=== PATIENT | female | born 1975 | race Caucasian/White ===

== ENCOUNTER 2017-02-10 10:54 | Emergency (ER) ==
--- NOTE | 2017-02-10 11:11 | ED EKG INTERP ---
EKG Interpretation - EKG Time of EKG reading by physician:: 11:09 EKG Read and Signed by:: Elvin Doll EKG Interpretation (*Must complete 3 of following elements*): Normal Rate: 75 Rhythm: nsr [place]: normal QRS: normal RI Interval: normal ST Wave: normal
[2017-02-10] MEDS ORDERED: NAPROSYN PO ONE (11:22)
--- NOTE | 2017-02-10 11:22 | EKG Report ---
Test Performed on : 02/10/2017 11:09:00 AM Test Reason : CP Blood Pressure : / mmHG Vent. Rate : 075 BPM Atrial Rate : 075 BPM P-R Int : 118 ms QRS Dur : 080 ms QT Int : 418 ms P-R-T Axes : 049 083 059 degrees QTc Int : 466 ms Normal sinus rhythm. Normal ECG No previous ECGs available Unconfirmed Result
[2017-02-10] MEDS ORDERED: ROBAXIN PO ONE (11:23)
--- NOTE | 2017-02-10 11:27 | PROVIDER DOCUMENTATION ---
HPI-General Adult - General Source: patient - History of Present Illness -Gen Adult Nature of Presenting Problems: 41 y/o F presents to ED cc of multiple pains. Pt states she works nights and uses her arms alot. Pt states while at work she got a pain in her L shoulder the radiates down her arm x 1 day. Reports pain being sharp/aching. Pt also reports "a pain in my heart" x 1 year and has been seen many times for with no answers. Pt states also having a pain around her R collar bone that is sharp that onset last PM. Pt denies any injury. Location of Pain/Injury: reports: chest ("in my heart"), upper extremity (L shoulder) Pain Radiation: reports: arm(s) (L arm) Quality of Pain: reports: aching, sharp Severity: reports: mild Onset/Duration: reports: just prior to arrival Timing: reports: still present Context/Activities at Onset: reports: light activity Modifying Factors: improves with: movement Associated Symptoms: reports: back/neck pain (R coller bone pain), chest pain ( " pain in heart"), other (shoulder pain). denies: cough, shortness of breath Similar Symptoms Previously?: No Recently seen or treated by another doctor?: No <Diana Vanegas - Last Filed: 02/10/17 12:32> - General Source: patient - History of Present Illness -Gen Adult Location of Pain/Injury: reports: upper extremity Pain Radiation: reports: no radiation Quality of Pain: reports: aching Severity: reports: mild Onset/Duration: reports: 4-6 hours ago Timing: reports: still present Context/Activities at Onset: reports: light activity Modifying Factors: improves with: nothing Associated Symptoms: reports: other (REPORTS ANTERIOR CHEST WALL PAIN WITH COUGH --NO SOB.) Similar Symptoms Previously?: No Recently seen or treated by another doctor?: No <Cindy Morrell - Last Filed: 02/10/17 14:07> - General Chief Complaint: Chest Pain Stated Complaint: LOW BLOOD SUGAR/ARM PAIN Time Seen by Provider: 02/10/17 11:19 Allergies/Adverse Reactions: Patient Allergies Allergy/AdvReac Type Severity Reaction Status Date / Time No Known Allergies Allergy Verified 02/10/17 13:13 Home Medications: Home Medication List Medication Instructions Recorded Confirmed Last Taken Type Bisacodyl [Dulcolax] 10 mg [place] QHS #20 supp 11/30/16 02/10/17 Unknown Rx Cyclobenzaprine [Flexeril] 10 mg PO TID #20 tablet 11/30/16 02/10/17 02/03/17 10 :00 Rx Na Phos,M-B/Na Phos,Di-Ba [Fleet 133 ml [place] HS PRN PRN #3 enema 11/30/16 Unknown Rx Enema] Polyethylene Glycol 3350 [Miralax] 255 gm PO DAILY #1 powder 11/30/16 02/10/17 02/08/17 10:00 Rx Cyclobenzaprine [Flexeril] 10 mg PO TID #20 tablet 02/10/17 Unknown Rx Meloxicam [Mobic] 15 mg PO DAILY 02/10/17 02/10/17 02/09/17 10:00 History Methylprednisolone [Medrol Dosepak] 4 mg PO DIRECTED #1 package 02/10/17 Unknown Rx Review of Systems - Adult - REVIEW OF SYSTEMS - ADULT Constitutional: denies: chills, fever Ears, Nose, Mouth & Throat: denies: ear pain, throat pain Cardiovascular: reports: chest pain (" pain in heart"). denies: palpitations Respiratory: denies: cough, shortness of breath Gastrointestinal: denies: abdominal pain, diarrhea, nausea, vomiting Musculoskeletal: reports: neck pain (R coller bone pain), other (L shoulder pain ) Neurological: denies: dizziness/vertigo, headache/migraines <Diana Vanegas - Last Filed: 02/10/17 12:32> Past History - Adult - PAST MEDICAL HISTORY-ADULT Review of Records: reports: Old Records Reviewed, Nursing Assessment Review Major Childhood Illnesses: reports: denies history Cardiovascular: reports: denies history Respiratory: reports: asthma Gastrointestinal: reports: denies history Obstetrical/Gynecological: reports: other (cervical) Genitourinary: reports: denies history Musculoskeletal: reports: intervertebral disc disease Neurological: reports: CVA, TIA Psychiatric: reports: depression Endocrine/Immune: reports: denies history Other Conditions: reports: denies history - PRIOR SURGERIES/PROCEDURES Surgical/Procedure History: reports: BTL, breast, other (tube in left ear) - IMMUNIZATION STATUS Childhood Immunizations: See Nurse Assessment Flu Vaccine: See Nurse Assessment - FAMILY HISTORY Family History: reviewed, not pertinent - SOCIAL HISTORY Smoking: greater than 1 pack/day Provider spent 3-5 mins advising pt. on dangers of tobacco.: Discussed manners to quit use, and f/u contacts for add'l counseling. Substance Use: denies <Diana Vanegas - Last Filed: 02/10/17 12:32> Physical Exam-General - PHYSICAL EXAM-ADULT Initial Vital Signs Reviewed: Yes - CONSTITUTIONAL General Appearance: appears well, alert, no apparent distress, thin - HEAD, EARS, NOSE, MOUTH & THROAT HENMT: normocephalic/atraumatic, moist mucous membranes, normal ENT inspection - NECK Neck: non-tender, full range of motion, supple - RESPIRATORY Respiratory: chest non-tender, lungs clear, normal breath sounds - CARDIOVASCULAR Cardiovascular: normal peripheral pulses, regular rate, rhythm, no edema - GASTROINTESTINAL (ABDOMEN) Abdominal Exam: normal bowel sounds, non tender, soft - MUSCULOSKELETAL Back Exam: normal inspection, no CVA tenderness, no vertebral tenderness Extremity: normal range of motion, normal gait, tenderness (L SHOULDER MILD TENDERNESS WITH MOVEMENT MOTION SIDE TO SIDE / NO TENDERNESS WHEN PRESSED ON OR MOVING UP AND DOWN) - SKIN Integumentary: normal color, normal turgor - NEUROLOGIC Neurologic: grossly normal, no motor/sensory deficits - PSYCHIATRIC Psych/Mental Status: normal mood/affect, normal thought content, normal thought process, oriented x 3 <Diana Vanegas - Last Filed: 02/10/17 12:32> Progress - PLAN OF CARE/RESULTS Progress/Plan/Lab Results: PLAN: LABS,CHEST XRAY , PAIN MEDICATION PT AND PT VERBALLY UNDERSTANDS PLAN. - XRAY 1 XRAY: Bilateral XRAY Study: Chest Impression: Normal (COPD) XRAY Interpretation: see impression - (radiologist) <Diana Vnaegas - Last Filed: 02/10/17 12:32> Departure <Diana Vanegas - Last Filed: 02/10/17 12:32> - Departure Time of Disposition Order: 14:04 Certified Medical Emergency: Emergent <Cindy Morrell - Last Filed: 02/10/17 14:07> - Departure DIAGNOSIS: Left shoulder pain Qualifiers: Chronicity: acute Qualified Code(s): M25.512 - Pain in left shoulder Disposition: HOME 01 Condition: Stable Prescriptions: Cyclobenzaprine [Flexeril] 10 mg PO TID #20 tablet Methylprednisolone [Medrol Dosepak] 4 mg PO DIRECTED #1 package Attestation - Scribe Verification/Attestation Scribe:: Diana Vanegas Acting as Scribe for:: Elvin Doll Scribe documention review:: This chart was documented by a scribe and accurately reflects the service the provider performed and the decisions made by the provider. <Diana Vanegas - Last Filed: 02/10/17 12:32> Physician Attestation
[2017-02-10 11:50] LABS: MANUAL DIFF NEEDED? NO
[2017-02-10 12:03] LABS: BASO% 0.6 % (0.0-0.8); EOS# 0.23 X1000 (0.0-0.7); EOS% 2.7 % (0.0-10.0); HEMATOCRIT 34.6 % (37.0-47.0); HEMOGLOBIN 11.4 g/dL (12.0-16.0); LYMPH# 3.99 X1000 (1.2-3.4); LYMPH% 47.2 % (20.5-51.1); MCH 30.6 PG (27-31); MCHC 32.9 g/dL (33-37); MCV 92.8 FL (81-99); MONO# 0.82 X1000 (0.11-0.59); MONO% 9.7 % (1.7-9.3); MPV 9.7 FL (7.4-10.4); NEUT% 39.8 % (42.2-75.2); PLT 366 X1000 (130-400); RBC 3.73 XMIL (4.2-5.4)
[2017-02-10 12:15] LABS: ALKALINE PHOSPHATASE 67 U/L (32-104); BUN 8 mg/dL (8-22); CALCIUM 8.6 mg/dL (8.8-10.2); CK PROFILE 112 U/L (24-173); GOT 22 U/L (10-30); GPT 13 U/L (10-36); TCO2 23 mmol/L (25-35); TOTAL BILIRUBIN 0.35 mg/dL (0.20-1.00); TOTAL PROTEIN 6.8 g/dL (6.3-8.3)
[2017-02-10 12:21] LABS: CHLORIDE 106 mmol/L (98-107); POTASSIUM 3.7 mmol/L (3.5-5.1); SODIUM 140 mmol/L (136-145)
[2017-02-10 12:26] LABS: INR 1.03; PROTIME 10.5 Seconds (9.2-11.7); PTT 25.9 Seconds (22.0-36.0)
[2017-02-10 12:31] LABS: AGAP 11; COSMO 176
--- NOTE | 2017-02-10 12:44 | Diag Imaging Result Document ---
PROCEDURE NAME: CHEST-2 VIEWS - 02/10/2017 CHEST X-RAY, 2 VIEWS: COMPARISON: 11/08/2016. FINDINGS: Lungs are hyperexpanded, compatible with COPD. No focal infiltrates, pneumothorax, or pleural effusion. Heart size and pulmonary vascularity is normal. IMPRESSION: COPD.
[2017-02-10 14:33] VITALS: BP 110/75
== END 2017-02-10 14:32 | disposition home or self-care (01) ==
LOC: ED 10:54
DX: M25.512 Pain in left shoulder (principal); M79.602 Pain in left arm; R07.9 Chest pain, unspecified; Z86.73 Personal history of transient ischemic attack (TIA), and cerebral infarction without residual deficits; F32.9 Major depressive disorder, single episode, unspecified; F17.210 Nicotine dependence, cigarettes, uncomplicated; Z71.6 Tobacco abuse counseling; Z79.899 Other long term (current) drug therapy; Z79.1 Long term (current) use of non-steroidal anti-inflammatories (NSAID)
CPT/HCPCS: 71020; 80053; 82550; 83735; 83880; 84484; 85025; 85379; 85610; 85730; 93005